=== PATIENT | female | born 1955 | race Two or more races ===

== ENCOUNTER 2020-04-26 12:40 | Emergency (ER) | payer OTHER ==
[~2020-04-26] VITALS: Ht 154.9 cm; Wt 79.4 kg
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
--- NOTE | 2020-04-26 13:06 | NUR ---
PT TO RADIOLOGY
--- NOTE | 2020-04-26 13:51 | NUR ---
Patient discharged to home in stable condition. Written and verbal after care instructions given. Patient verbalizes understanding of instruction. Pt ambulatory with a steady gait
[2020-04-26 13:52] VITALS: BP 123/70
== END 2020-04-26 13:52 | disposition home or self-care (01) ==
LOC: ER 12:50
DX: M25.511 Pain in right shoulder (principal); M79.604 Pain in right leg; E03.9 Hypothyroidism, unspecified; V49.59XA Passenger injured in collision with other motor vehicles in traffic accident, initial encounter; Y93.89 Activity, other specified; Y92.488 Other paved roadways as the place of occurrence of the external cause; Y99.8 Other external cause status
CPT/HCPCS: 73030-TC; 73060-TC; 73502

== ENCOUNTER 2024-10-05 16:42 | Emergency (ER) | payer MEDICARE, OTHER ==
[~2024-10-05] VITALS: Ht 162.6 cm; Wt 68.5 kg
[2024-10-05 16:49] VITALS: TEMP 98
[2024-10-05] MEDS ORDERED: CYCLOBENZAPRINE 10 MG TABLET ONE (18:15)
[2024-10-05] MEDS ORDERED: IBUPROFEN 600 MG TABLET ONE (18:15)
[2024-10-05] MEDS: IBUPROFEN 600 MG TABLET PO ONE (18:20)
[2024-10-05] MEDS: CYCLOBENZAPRINE 10 MG TABLET PO ONE (18:20)
[2024-10-05] MEDS ORDERED: IBUP-1953 PO (19:14)
[2024-10-05] MEDS ORDERED: CYCL5TAB PO (19:14)
[2024-10-05 19:27] VITALS: BP 123/77; O2SAT 97
== END 2024-10-05 19:24 | disposition home or self-care (01) ==
LOC: ER 16:45
DX: S13.4XXA Sprain of ligaments of cervical spine, initial encounter (principal); I10 Essential (primary) hypertension; E03.9 Hypothyroidism, unspecified; V43.12XA Car passenger injured in collision with other type car in nontraffic accident, initial encounter; Y93.89 Activity, other specified; Y92.415 Exit ramp or entrance ramp of street or highway as the place of occurrence of the external cause; Y99.8 Other external cause status
CPT/HCPCS: 72100-TC